=== PATIENT | male | born 1995 | race Caucasian/White ===

== ENCOUNTER 2018-09-04 21:42 | Emergency (ER) | payer SELFPAY ==
[2018-09-04] MEDS ORDERED: NORMAL SALINE 1000 ML 1,000 ML IV ONE (22:46)
--- NOTE | 2018-09-04 22:50 | ER Document Report ---
ED Medical Screen (RME) - General Chief Complaint: Psych Problem Stated Complaint: PSYCH Time Seen by Provider: 09/04/18 22:45 Notes: 23-year-old male, chief complaint of insomnia, anxiety, diarrhea, being unable to eat for the past 3 days. He states he was prescribed Suboxone and had high levels of Xanax, he just ran out of his Suboxone, he is on lower doses of Xanax, he is hoping to detox. TRAVEL OUTSIDE OF THE [place] IN LAST 30 DAYS: No - Related Data Allergies/Adverse Reactions: No Known Drug Allergies Allergy (Verified 09/04/18 21:51) Past Medical History - Social History Drug Abuse: Prescription drugs Renal/ Medical History: Denies: Hx Peritoneal Dialysis Past Surgical History: Reports: Hx Orthopedic Surgery - right forearm Physical Exam - Vital signs Vitals: Temp Pulse Resp BP Pulse Ox 98.4 F 107 H 20 143/87 H 100 09/04/18 21:53 09/04/18 21:53 09/04/18 21:53 09/04/18 21:53 09/04/18 21:53 - Cardiovascular Rhythm: Regular, Tachycardia Heart sounds: Normal auscultation, S1 appreciated, S2 appreciated - Psychological Associated symptoms: Anxious - Rapid and pressured speech Course - Re-evaluation Re-evalutation: Patient has pressured speech, restless, mildly tachycardic. Denies SI or HI. I have greeted and performed a rapid initial assessment of this patient. A comprehensive ED assessment and evaluation of the patient, analysis of test results and completion of the medical decision making process will be conducted by additional ED providers. - Vital Signs Vital signs: Temp Pulse Resp BP Pulse Ox 98.4 F 107 H 20 143/87 H 100 09/04/18 21:53 09/04/18 21:53 09/04/18 21:53 09/04/18 21:53 09/04/18 21:53
--- NOTE | 2018-09-04 23:22 | ER Document Report ---
Addendum entered and electronically signed by KAREN HANCOCK DO 09/05/18 10:08: Course - Re-evaluation Re-evalutation: 09/05/18 10:06 Patient was seen and evaluated. Please see my note. At this time mental health is seen. They are comfortable discharging. Patient was advised to follow-up with his regular doctor for prescriptions. We will not be providing anything for him today. Patient does not meet criteria for IVC. Does not meet criteria for mandatory treatment. He is not suicidal or homicidal. - Vital Signs Vital signs: Temp Pulse Resp BP Pulse Ox 97.3 F 85 18 133/84 H 100 09/05/18 06:58 09/05/18 06:58 09/05/18 06:58 09/05/18 06:58 09/05/18 06:58 - Laboratory Result Diagrams: 09/04/18 23:00 09/04/18 23:00 Laboratory results interpreted by me: 09/04/18 09/04/18 23:00 23:00 WBC 10.8 H Carbon Dioxide 31 H Glucose 113 H Calcium 10.4 H Total Protein 8.3 H Salicylates < 1.0 L Acetaminophen < 10 L Discharge - Discharge Clinical Impression: Anxiety, Substance abuse Condition: Stable Disposition: HOME, SELF-CARE Additional Instructions: You have been evaluated by both medical and behavioral teams and have been deemed appropriate for discharge. You are highly encouraged to follow up with substance abuse treatment. You have been provided local resource list of area providers for both mental health and substance abuse including mobile crisis contact information. COCAINE ABUSE: Cocaine causes many dangerous medical problems. Problems can occur even with "usual" amounts. Cocaine affects judgement, creating a sense of invulner ability. Cocaine users often make bad decisions that seem "great" at the time. Most cocaine users eventually will be hurt by bad job performance, damaged personal relations, crime, and unsafe sexual practices. Toxic effects of cocaine can include seizures, hallucinations, delusions, high blood pressure, heart damage, or sudden . There's always the risk of a "bad batch." But heart attacks, brain hemorrhages, or cardiac arrest can occur unpredictably even with "normal" use. Injection of cocaine is risky for abscesses, endocarditis (heart infection), pneumonia, and AIDS. Withdrawal from cocaine often causes anxiety and drug cravings. Some users become paranoid and psychotic. Many treatment programs are available, but you must make the decision to quit. Medication can be prescribed to control the symptoms of cocaine toxicity (beta blockers or benzodiazepines). Withdrawal symptoms may require tranquilizers. AMPHETAMINE / METHAMPHETAMINE ABUSE: Amphetamines are addicting stimulants. Amphetamines overstimulate the nervous system and give a false feeling of power and mastery. These drugs may be obtained as prescription pills for weight loss, narcolepsy, or attention-deficit disorder. More often they're bought as an illegal street drug, methamphetamine (crank, crystal, speed). Using amphetamines repeatedly can lead to serious medical problems including malnutrition, severe depression, and paranoia. It can take increasing amounts to feel good. Eventually, there will be a "burn out." When you go off amphetamines there is a period of depression that may last for weeks or even months. High doses of amphetamines can cause seizures, confusion, hallucinations, delusions, high blood pressure, muscle damage, heart damage, or sudden . Many times these deadly complications occur even with "normal" doses. Injection of amphetamines is risky for developing abscesses, endocarditis (heart infection), pneumonia, and AIDS. Withdrawal from amphetamines often causes anxiety, depression, and drug cravings. Some users become paranoid and psychotic. There may be cramps, nausea, and vomiting. Many treatment programs are available, but you must make the decision to quit. Medication can be prescribed to control the symptoms of amphetamine toxicity (beta blockers or benzodiazepines). Withdrawal symptoms may require tranquilizers. FOLLOW-UP CARE: If you have been referred to a physician for follow-up care, call the physicians office for an appointment as you were instructed or within the next two days. If you experience worsening or a significant change in your symptoms, notify the physician immediately or return to the Emergency Department at any time for re-evaluation. Referrals: [facility] [Outside] - Follow up as needed [facility] [Outside] - Follow up in 3-5 days LU VAUGHN DO [Primary Care Provider] - 09/05/18 10:07 am Addendum entered and electronically signed by REMI PATHAK LCSWA 09/05/18 09:42: Discharge - Discharge Clinical Impression: Anxiety, Substance abuse Condition: Stable Disposition: HOME, SELF-CARE Additional Instructions: You have been evaluated by both medical and behavioral teams and have been deemed appropriate for discharge. You are highly encouraged to follow up with substance abuse treatment. You have been provided local resource list of area providers for both mental health and substance abuse including mobile crisis contact information. COCAINE ABUSE: Cocaine causes many dangerous medical problems. Problems can occur even with "usual" amounts. Cocaine affects judgement, creating a sense of invulnerability. Cocaine users often make bad decisions that seem "great" at the time. Most cocaine users eventually will be hurt by bad job performance, damaged personal relations, crime, and unsafe sexual practices. Toxic effects of cocaine can include seizures, hallucinations, delusions, high blood pressure, heart damage, or sudden . There's always the risk of a "bad batch." But heart attacks, brain hemorrhages, or cardiac arrest can o ccur unpredictably even with "normal" use. Injection of cocaine is risky for abscesses, endocarditis (heart infection), pneumonia, and AIDS. Withdrawal from cocaine often causes anxiety and drug cravings. Some users become paranoid and psychotic. Many treatment programs are available, but you must make the decision to quit. Medication can be prescribed to control the symptoms of cocaine toxicity (beta blockers or benzodiazepines). Withdrawal symptoms may require tranquilizers. AMPHETAMINE / METHAMPHETAMINE ABUSE: Amphetamines are addicting stimulants. Amphetamines overstimulate the nervous system and give a false feeling of power and mastery. These drugs may be obtained as prescription pills for weight loss, narcolepsy, or attention-deficit disorder. More often they're bought as an illegal street drug, methamphetamine (crank, crystal, speed). Using amphetamines repeatedly can lead to serious medical problems including malnutrition, severe depression, and paranoia. It can take increasing amounts to feel good. Eventually, there will be a "burn out." When you go off amphetamines there is a period of depression that may last for weeks or even months. High doses of amphetamines can cause seizures, confusion, hallucinations, delusions, high blood pressure, muscle damage, heart damage, or sudden . Many times these deadly complications occur even with "normal" doses. Injection of amphetamines is risky for developing abscesses, endocarditis (heart infection), pneumonia, and AIDS. Withdrawal from amphetamines often causes anxiety, depression, and drug cravings. Some users become paranoid and psychotic. There may be cramps, nausea, and vomiting. Many treatment programs are available, but you must make the decision to quit. Medication can be prescribed to control the symptoms of amphetamine toxicity (beta blockers or benzodiazepines). Withdrawal symptoms may require t ranquilizers. FOLLOW-UP CARE: If you have been referred to a physician for follow-up care, call the physicians office for an appointment as you were instructed or within the next two days. If you experience worsening or a significant change in your symptoms, notify the physician immediately or return to the Emergency Department at any time for re-evaluation. Referrals: LU VAUGHN DO [Primary Care Provider] - Follow up as needed [facility] [Outside] - Follow up in 3-5 days [facility] [Outside] - Follow up as needed Original Note: ED General - General Chief Complaint: Psych Problem Stated Complaint: PSYCH Time Seen by Provider: 09/04/18 22:45 Primary Care Provider: LU VAUGHN DO [Primary Care Provider] - Follow up as needed Notes: Patient is a 23-year-old male with history of anxiety and substance abuse that presents to the emergency department for chief complaint of anxiety, decreased appetite. Patient states that he has been out of his anxiety medication, which he takes Xanax 0.5 mg twice daily, and has been out of it for about 2 days, as a result he is not been eating or drinking well, and he states his anxiety is so severe, he is been having hopelessness, and helplessness over the past several weeks as well and has been building up, and being out of his medication is only made it worse. He denies specifically any suicidal ideations, but states that his life is not worth living when his anxiety is not well controlled. He does have a primary care physician, but does not have a psychiatrist in the area. He states he was on Suboxone, and has been trying to get off of it, but states that he cannot wean himself and has been purchasing it on the street. He denies any alcohol use, but admits to chewing tobacco. Past Medical History: Substance abuse, anxiety, depression Past Surgical History: Denies pertinent surgical history Social History: Admits to chewing tobacco, denies any alcohol use, admits to prior opiate abuse Family History: Reviewed and noncontributory for presenting illness Allergies: Reviewed, see documented allergy list. REVIEW OF SYSTEMS: Other than noted above, the 12 point review of systems was reviewed with the patient and were negative, all pertinent findings are included in the HPI. PHYSICAL EXAMINATION: Vital signs reviewed, nursing noted reviewed. GENERAL: Patient appears anxious on exam, but in no acute distress HEAD: Atraumatic, normocephalic. EYES: Eyes appear normal, extraocular movements intact, sclera anicteric, conjunctiva are normal. ENT: nares patent, oropharynx clear without exudates. Moist mucous membranes. NECK: Normal range of motion, supple without lymphadenopathy LUNGS: Breath sounds clear to auscultation bilaterally and equal. No wheezes rales or rhonchi. HEART: Heart rate tachycardic, regular rhythm. No audible murmur. ABDOMEN: Soft, nontender, normoactive bowel sounds. No rebound, guarding, or rigidity. No masses appreciated. EXTREMITIES: Nontender, good range of motion, no pitting or edema. NEUROLOGICAL: No focal neurological deficits. Moves all extremities spontaneously Motor and sensory grossly intact on exam. PSYCH: Anxious on exam, pressured speech SKIN: Warm, Dry, normal turgor, no rashes or lesions noted on exposed skin TRAVEL OUTSIDE OF THE [place] IN LAST 30 DAYS: No - Related Data Allergies/Adverse Reactions: No Known Drug Allergies Allergy (Verified 09/04/18 21:51) Past Medical History - Social History Smoking Status: Current Every Day Smoker Drug Abuse: Prescription drugs Family History: Reviewed & Not Pertinent Patient has suicidal ideation: No Patient has homicidal ideation: No Renal/ Medical History: Denies: Hx Peritoneal Dialysis Past Surgical History: Reports: Hx Orthopedic Surgery - right forearm Physical Exam - Vital signs Vitals: Temp Pulse Resp BP Pulse Ox 98.4 F 107 H 20 143/87 H 100 09/04/18 21:53 09/04/18 21:53 09/04/18 21:53 09/04/18 21:53 09/04/18 21:53 Course - Re-evaluation Re-evalutation: Patient seen and examined, vital signs reviewed. Medical screening testing was ordered including bloodwork, EKG, and toxicology. Results of testing were reviewed. Testing demonstrated positive for methamphetamines, cocaine, and THC, and benzodiazepines. Patient has been stable from a hemodynamic standpoint. At this point I feel that the patient is medically cleared and can be further evaluated from a psychiatric standpoint for final disposition from the emergency department. Patient updated on plan of care. Patient was medicated with a single dose of IV lorazepam, as the patient was very anxious, tachycardic initially, after reviewing tox screen, is possibly due to multi-substance abuse, and possibly cocaine and methamphetamine use, as the patient had decreased appetite. Patient was requesting Phenergan, however he was only given Zofran ODT, for some nausea he was having. I did give the patient a dose of Zyprexa 5 mg to see if this would help the patient sleep, better stabilize his mood, I believe the patient does have an addiction to benzodiazepines, as he states that he feels so uncomfortable, that he may go to the pharmacy and demanded, which is concerning, however he denies any suicidal or homicidal ideations at this time, patient was willing to stay voluntarily, as he does not have a psychiatrist in the area, and in my opinion does need close outpatient follow-up, and would benefit from evaluation from the behavioral health team in the ED. Laboratory 09/04/18 09/04/18 09/05/18 23:00 23:00 00:50 WBC 10.8 H RBC 5.55 Hgb 15.7 Hct 45.3 MCV 82 MCH 28.4 MCHC 34.7 RDW 13.8 Plt Count 284 Seg Neutrophils % 67.6 Lymphocytes % 25.6 Monocytes % 5.4 Eosinophils % 0.7 Basophils % 0.7 Absolute Neutrophils 7.3 Absolute Lymphocytes 2.8 Absolute Monocytes 0.6 Absolute Eosinophils 0.1 Absolute Basophils 0.1 Sodium 143.6 Potassium 3.9 Chloride 99 Carbon Dioxide 31 H Anion Gap 14 BUN 11 Creatinine 0.92 Est GFR ( Amer) > 60 Est GFR (Non-Af Amer) > 60 Glucose 113 H Calcium 10.4 H Total Bilirubin 0.8 Direct Bilirubin 0.4 Neonat Total Bilirubin Not Reportable Neonat Direct Bilirubin Not Reportable Neonat Indirect Bili Not Reportable AST 32 ALT 59 Alkaline Phosphatase 94 Total Protein 8.3 H Albumin 5.0 Urine Color YELLOW Urine Appearance SLIGHTLY-CLOUDY Urine pH 6.0 Ur Specific [place] 1.019 Urine Protein NEGATIVE Urine Glucose (UA) NEGATIVE Urine Ketones NEGATIVE Urine Blood NEGATIVE Urine Nitrite NEGATIVE Urine Bilirubin NEGATIVE Urine Urobilinogen NEGATIVE Ur Leukocyte Esterase NEGATIVE Urine WBC (Auto) 1 Urine RBC (Auto) 0 U Hyaline Cast (Auto) 2 Urine Mucus (Auto) MANY Urine Ascorbic Acid NEGATIVE Salicylates < 1.0 L Urine Opiates Screen Urine Methadone Screen Acetaminophen < 10 L Ur Barbiturates Screen Ur Phencyclidine Scrn Ur Amphetamines Screen U Benzodiazepines Scrn Urine Cocaine Screen U Marijuana (THC) Screen Serum Alcohol < 10 09/05/18 00:50 WBC RBC Hgb Hct MCV MCH MCHC RDW Plt Count Seg Neutrophils % Lymphocytes % Monocytes % Eosinophils % Basophils % Absolute Neutrophils Absolute Lymphocytes Absolute Monocytes Absolute Eosinophils Absolute Basophils Sodium Potassium Chloride Carbon Dioxide Anion Gap BUN Creatinine Est GFR ( Amer) Est GFR (Non-Af Amer) Glucose Calcium Total Bilirubin Direct Bilirubin Neonat Total Bilirubin Neonat Direct Bilirubin Neonat Indirect Bili AST ALT Alkaline Phosphatase Total Protein Albumin Urine Color Urine Appearance Urine pH Ur Specific [place] Urine Protein Urine Glucose (UA) Urine Ketones Urine Blood Urine Nitrite Urine Bilirubin Urine Urobilinogen Ur Leukocyte Esterase Urine WBC (Auto) Urine RBC (Auto) U Hyaline Cast (Auto) Urine Mucus (Auto) Urine Ascorbic Acid Salicylates Urine Opiates Screen NEGATIVE Urine Methadone Screen NEGATIVE Acetaminophen Ur Barbiturates Screen NEGATIVE Ur Phencyclidine Scrn NEGATIVE Ur Amphetamines Screen UNCONFIRMED POSITIVE U Benzodiazepines Scrn UNCONFIRMED POSITIVE Urine Cocaine Screen UNCONFIRMED POSITIVE U Marijuana (THC) Screen UNCONFIRMED POSITIVE Serum Alcohol - Vital Signs Vital signs: Temp Pulse Resp BP Pulse Ox 98.3 F 87 18 154/84 H 100 09/05/18 02:27 09/05/18 02:27 09/05/18 02:27 09/05/18 02:27 09/05/18 02:27 - Laboratory Result Diagrams: 09/04/18 23:00 09/04/18 23:00 Laboratory results interpreted by me: 09/04/18 09/04/18 23:00 23:00 WBC 10.8 H Carbon Dioxide 31 H Glucose 113 H Calcium 10.4 H Total Protein 8.3 H Salicylates < 1.0 L Acetaminophen < 10 L - EKG Interpretation by Me Additional EKG results interpreted by me: EKG demonstrates sinus rhythm with a ventricular rate of 66 bpm, normal axis, normal intervals, nonspecific T wave inversion noted in lead V2, otherwise unremarkable EKG. Discharge - Discharge Clinical Impression: Anxiety, Substance abuse Condition: Stable Disposition: PSYCH HOSP/UNIT Referrals: LU VAUGHN DO [Primary Care Provider] - Follow up as needed
[2018-09-04 23:23] LABS: ABSOLUTE BASOPHILS # (AUTO) 0.1 10^3/uL (0.0-0.2); ABSOLUTE EOSINOPHILS # (AUTO) 0.1 10^3/uL (0.0-0.6); ABSOLUTE LYMPHOCYTES (AUTO) 2.8 10^3/uL (0.5-4.7); ABSOLUTE MONOCYTES (AUTO) 0.6 10^3/uL (0.1-1.4); ABSOLUTE NEUT (AUTO) 7.3 10^3/uL (1.7-8.2); BASOPHILS % (AUTO) 0.7 % (0-2); EOSINOPHILS % (AUTO) 0.7 % (0-6); HEMATOCRIT 45.3 % (37.9-51.0); HEMOGLOBIN 15.7 g/dL (13.5-17.0); LYMPHOCYTES % (AUTO) 25.6 % (13-45); MEAN CORPUSCULAR HEMOGLOBIN 28.4 pg (27.0-33.4); MEAN CORPUSCULAR HGB CONC 34.7 g/dL (32.0-36.0); MEAN CORPUSCULAR VOLUME 82 fl (80-97); MONOCYTES % (AUTO) 5.4 % (3-13); PLATELET COUNT 284 10^3/uL (150-450); RED BLOOD COUNT 5.55 10^6/uL (4.35-5.55); RED CELL DISTRIBUTION WIDTH 13.8 % (11.5-14.0); SEGMENTED NEUTROPHILS % (AUTO) 67.6 % (42-78); TOTAL CELLS COUNTED % (AUTO) 100 %; WHITE BLOOD COUNT 10.8 10^3/uL (4.0-10.5)
[2018-09-04] MEDS ORDERED: LORAZEPAM INJ 2 MG/1 ML VIAL IV ONE (23:35)
[2018-09-04 23:51] LABS: ALANINE AMINOTRANSFERASE 59 U/L (21-72); ALKALINE PHOSPHATASE 94 U/L (38-126); ANION GAP 14 (5-19); ASPARTATE AMINO TRANSFERASE 32 U/L (17-59); BILIRUBIN,DIRECT 0.4 mg/dL (0.0-0.4); BILIRUBIN,TOTAL 0.8 mg/dL (0.2-1.3); BLOOD UREA NITROGEN 11 mg/dL (7-20); CALCIUM 10.4 mg/dL (8.4-10.2); CARBON DIOXIDE 31 mmol/L (22-30); CHLORIDE 99 mmol/L (98-107); GLUCOSE 113 mg/dL (75-110); POTASSIUM 3.9 mmol/L (3.6-5.0); SODIUM 143.6 mmol/L (137-145); TOTAL PROTEIN 8.3 g/dL (6.3-8.2)
[2018-09-04 23:52] LABS: ACETAMINOPHEN < 10 ug/mL (10-30); ALCOHOL < 10 mg/dL (NONE DETECTED); SALICYLATE < 1.0 mg/dL (2.0-20.0)
[2018-09-05] MEDS ORDERED: ONDANSETRON 4 MG TAB.RAPDIS PO ONE (00:58)
[2018-09-05 01:17] LABS: APPEARANCE,URINE SLIGHTLY-CLOUDY; BILIRUBIN,URINE NEGATIVE (NEGATIVE); COLOR,URINE YELLOW; GLUCOSE, URINE NEGATIVE (NEGATIVE); KETONES,URINE NEGATIVE (NEGATIVE); LEUKOCYTE ESTERASE,URINE NEGATIVE (NEGATIVE); NITRITE,URINE NEGATIVE (NEGATIVE); PROTEIN,URINE NEGATIVE (NEGATIVE); URINE SPECIFIC GRAVITY 1.019; UROBILINOGEN,URINE NEGATIVE mg/dL (<2.0)
[2018-09-05] MEDS ORDERED: OLANZAPINE 5 MG TAB.RAPDIS PO ONE (01:18)
[2018-09-05 03:25] LABS: URINE AMPHETAMINES SCREEN UNCONFIRMED POSITIVE; URINE BARBITURATES SCREEN NEGATIVE; URINE BENZODIAZEPINES SCREEN UNCONFIRMED POSITIVE; URINE COCAINE SCREEN UNCONFIRMED POSITIVE; URINE MARIJUANA (THC) SCREEN UNCONFIRMED POSITIVE; URINE METHADONE SCREEN NEGATIVE; URINE PHENCYCLIDINE SCREEN NEGATIVE
--- NOTE | 2018-09-05 09:51 | ER Document Report ---
Doctor's Note Notes: 09/05/18 09:48 Patient has been seen and evaluated this morning. Review of his labs was performed. Patient states that he needs to be sent to a drug and alcohol treatment facility. States he does not have the money for this. States that he would get a refill on his Suboxone so that he would not have to take his other m edications but he cannot afford the $[address] Brock. Went questioned where he got the money for cocaine, marijuana, amphetamines he became a little bit more argumentative. I very politely explained to him and to his mother that I would not be prescribing any controlled substances for him at this time in the setting of a positive drug screen especially for to illicit substances, cocaine and marijuana. Patient is not on a legal hold and I have no reason to keep him here. Patient wants to leave he can leave. Mental health is trying to work with him and his mother to talk about options. 09/05/18 09:51 Laboratory 09/04/18 09/04/18 09/05/18 23:00 23:00 00:50 WBC 10.8 H RBC 5.55 Hgb 15.7 Hct 45.3 MCV 82 MCH 28.4 MCHC 34.7 RDW 13.8 Plt Count 284 Seg Neutrophils % 67.6 Lymphocytes % 25.6 Monocytes % 5.4 Eosinophils % 0.7 Basophils % 0.7 Absolute Neutrophils 7.3 Absolute Lymphocytes 2.8 Absolute Monocytes 0.6 Absolute Eosinophils 0.1 Absolute Basophils 0.1 Sodium 143.6 Potassium 3.9 Chloride 99 Carbon Dioxide 31 H Anion Gap 14 BUN 11 Creatinine 0.92 Est GFR ( Amer) > 60 Est GFR (Non-Af Amer) > 60 Glucose 113 H Calcium 10.4 H Total Bilirubin 0.8 Direct Bilirubin 0.4 Neonat Total Bilirubin Not Reportable Neonat Direct Bilirubin Not Reportable Neonat Indirect Bili Not Reportable AST 32 ALT 59 Alkaline Phosphatase 94 Total Protein 8.3 H Albumin 5.0 Urine Color YELLOW Urine Appearance SLIGHTLY-CLOUDY Urine pH 6.0 Ur Specific [place] 1.019 Urine Protein NEGATIVE Urine Glucose (UA) NEGATIVE Urine Ketones NEGATIVE Urine Blood NEGATIVE Urine Nitrite NEGATIVE Urine Bilirubin NEGATIVE Urine Urobilinogen NEGATIVE Ur Leukocyte Esterase NEGATIVE Urine WBC (Auto) 1 Urine RBC (Auto) 0 U Hyaline Cast (Auto) 2 Urine Mucus (Auto) MANY Urine Ascorbic Acid NEGATIVE Salicylates < 1.0 L Urine Opiates Screen Urine Methadone Screen Acetaminophen < 10 L Ur Barbiturates Screen Ur Phencyclidine Scrn Ur Amphetamines Screen U Benzodiazepines Scrn Urine Cocaine Screen U Marijuana (THC) Screen Serum Alcohol < 10 09/05/18 00:50 WBC RBC Hgb Hct MCV MCH MCHC RDW Plt Count Seg Neutrophils % Lymphocytes % Monocytes % Eosinophils % Basophils % Absolute Neutrophils Absolute Lymphocytes Absolute Monocytes Absolute Eosinophils Absolute Basophils Sodium Potassium Chloride Carbon Dioxide Anion Gap BUN Creatinine Est GFR ( Amer) Est GFR (Non-Af Amer) Glucose Calcium Total Bilirubin Direct Bilirubin Neonat Total Bilirubin Neonat Direct Bilirubin Neonat Indirect Bili AST ALT Alkaline Phosphatase Total Protein Albumin Urine Color Urine Appearance Urine pH Ur Specific [place] Urine Protein Urine Glucose (UA) Urine Ketones Urine Blood Urine Nitrite Urine Bilirubin Urine Urobilinogen Ur Leukocyte Esterase Urine WBC (Auto) Urine RBC (Auto) U Hyaline Cast (Auto) Urine Mucus (Auto) Urine Ascorbic Acid Salicylates Urine Opiates Screen NEGATIVE Urine Methadone Screen NEGATIVE Acetaminophen Ur Barbiturates Screen NEGATIVE Ur Phencyclidine Scrn NEGATIVE Ur Amphetamines Screen UNCONFIRMED POSITIVE U Benzodiazepines Scrn UNCONFIRMED POSITIVE Urine Cocaine Screen UNCONFIRMED POSITIVE U Marijuana (THC) Screen UNCONFIRMED POSITIVE Serum Alcohol EKG interpretation: Normal sinus rhythm, normal rate, no ST segment changes, normal QTC. Interpretation. Normal EKG. 09/05/18 09:51
[2018-09-05 10:49] VITALS: BP 120/66
--- NOTE | 2018-09-05 11:00 | EKG REPORT ---
SEVERITY:- NORMAL ECG - SINUS RHYTHM : Confirmed by: Cristino Pugh 05-Sep-2018 10:59:59
== END 2018-09-05 10:51 | disposition home or self-care (01) ==
LOC: ER 21:42
DX: F41.9 Anxiety disorder, unspecified (principal); F19.10 Other psychoactive substance abuse, uncomplicated; F17.200 Nicotine dependence, unspecified, uncomplicated
CPT/HCPCS: 93005; 99284; 96361; 96374; 36415; 80307 ×4; 85025; 80053; 81001; 93010; J3490; S0119; J2060; J7030